=== PATIENT | female | born 1975 | race Two or more races ===

== ENCOUNTER → 2016-09-06 | Outpatient (CLI) | payer BC ==
--- NOTE | 2016-09-06 16:41 | KCIC ---
PROCEDURE Complete pelvic ultrasound. HISTORY Pelvic pain, irregular heavy menses. TECHNIQUE Real-time ultrasound imaging of the pelvis using transabdominal and transvaginal window is performed. COMPARISON None. FINDINGS Uterus measures 8.8 x 5.2 x 3.3 cm. Uterus anteverted. Small amount of fluid in the cervical canal. Endometrial stripe is normal measuring 11 millimeters. There is an anterior right fibroid measuring up to 2.3 cm. There is a left fundal fibroid measuring up to 5.5 cm. A 3rd fibroid is seen adjacent measuring up to 4.8 cm. This fibroid is hypervascular. The right ovary measures 3.2 x 2.4 x 1.6 cm. Two follicles are seen. The left ovary measures 2.7 x 1 x 1.2 cm. Color Doppler demonstrates internal blood flow. No cul-de-sac free fluid is seen. IMPRESSION 1. The endometrial stripe is not abnormally thickened. 2. Myomatous uterus. 3. Trace fluid in the cervical canal, nonspecific. Electronically signed by: Maximo Olivares MD (Sep 06, 2016 16:40:02)
== END | disposition home or self-care (01) ==
LOC: KCIC US 14:21
PROVIDERS: ATTEND Family Medicine
DX: D25.9 Leiomyoma of uterus, unspecified (principal); N92.1 Excessive and frequent menstruation with irregular cycle
CPT/HCPCS: 76830; 76856

== ENCOUNTER → 2016-11-16 | Outpatient (CLI) | payer BC ==
--- NOTE | 2016-11-16 14:55 | KCIC ---
PELVIS W/TV Clinical Indication: Known fibroids, pain, bloating, irregular heavy bleeding x6 months. Comparison: Pelvic ultrasound, September 06, 2016. TECHNIQUE: Real-time ultrasound imaging of the pelvis using transabdominal and transvaginal window is performed. Findings: Uterus measures 7.5 x 5 x 4 cm. There are 2 uterine fibroids. Larger fibroid is measured significantly different on the transabdominal images than on the prior study. Comparing the transvaginal images the fibroid measures 5.7 x 4.4 cm, previously 5.5 x 4.1 cm. Anterior intramural uterine fibroid measures 2.1 x 2.7 x 1.6 cm. Small amount of fluid in the cervical canal is unchanged from prior study. The endometrial stripe remeasured at the workstation is 0.9 cm, previously 1.1 cm. Right ovary measures 2.3 x 1.4 x 1.7 cm. Left ovary measures 2.4 x 1.7 x 1.1 cm. No pelvic free fluid. No evidence of adnexal mass. IMPRESSION: 1. Endometrial stripe is normal. 2. Uterine fibroids are not significantly changed. 3. Trace fluid in the cervical canal, unchanged. Electronically signed by: Maximo Olivares MD (11/16/2016 2:52 PM)
== END | disposition home or self-care (01) ==
LOC: KCIC US 12:08
PROVIDERS: ATTEND Obstetrics & Gynecology
DX: D25.9 Leiomyoma of uterus, unspecified (principal); R10.2 Pelvic and perineal pain; R14.0 Abdominal distension (gaseous); N64.52 Nipple discharge
CPT/HCPCS: 76830; 76856